=== PATIENT | male | born 1940 | race Caucasian/White ===

== ENCOUNTER → 2016-09-06 | Outpatient (CLI) | payer OTHER ==
[~2016-09-06] MED LIST: REGADENOSON 0.4 MG/5 ML DISP.SYRIN. IV ONE
== END | disposition home or self-care (01) ==
LOC: PCVCIMAG 08:15
PROVIDERS: ATTEND Internal Medicine Cardiovascular Disease
DX: E78.00 Pure hypercholesterolemia, unspecified (principal); I10 Essential (primary) hypertension; E11.9 Type 2 diabetes mellitus without complications; J44.9 Chronic obstructive pulmonary disease, unspecified; Z72.0 Tobacco use
CPT/HCPCS: 78452; 93017; A9500; J2785

== ENCOUNTER → 2017-04-10 | Outpatient (CLI) | payer OTHER | END | disposition home or self-care (01) | LOC: PCVCCLINIC 15:01 | PROVIDERS: ATTEND Internal Medicine Cardiovascular Disease | DX: I10 Essential (primary) hypertension (principal); I27.2 Other secondary pulmonary hypertension; G47.33 Obstructive sleep apnea (adult) (pediatric); J43.9 Emphysema, unspecified; E11.9 Type 2 diabetes mellitus without complications; I49.1 Atrial premature depolarization; J30.9 Allergic rhinitis, unspecified; Z87.891 Personal history of nicotine dependence; Z79.84 Long term (current) use of oral hypoglycemic drugs; Z88.2 Allergy status to sulfonamides; Z88.6 Allergy status to analgesic agent | CPT/HCPCS: 80061; 93005; G0463 ==

== ENCOUNTER → 2017-10-18 | Outpatient (CLI) | payer OTHER | END | disposition home or self-care (01) | LOC: PCVCIMAG 16:19 | DX: I10 Essential (primary) hypertension (principal); J43.9 Emphysema, unspecified; E78.00 Pure hypercholesterolemia, unspecified; E11.9 Type 2 diabetes mellitus without complications; I48.91 Unspecified atrial fibrillation; Z86.79 Personal history of other diseases of the circulatory system; Z87.891 Personal history of nicotine dependence; Z79.899 Other long term (current) drug therapy; Z79.84 Long term (current) use of oral hypoglycemic drugs | CPT/HCPCS: 80061; 93005; 93306; G0463 ==

== ENCOUNTER → 2018-06-21 | Outpatient (CLI) | payer OTHER | END | disposition home or self-care (01) | LOC: PCVCCLINIC 14:30 | PROVIDERS: ATTEND Internal Medicine Cardiovascular Disease | DX: I10 Essential (primary) hypertension (principal); J43.9 Emphysema, unspecified; E11.9 Type 2 diabetes mellitus without complications; E78.00 Pure hypercholesterolemia, unspecified; F17.200 Nicotine dependence, unspecified, uncomplicated; Z79.84 Long term (current) use of oral hypoglycemic drugs | CPT/HCPCS: 80061; 93005; G0463 ==

== ENCOUNTER → 2018-10-08 | Outpatient (CLI) | payer OTHER ==
--- NOTE | 2018-10-08 12:25 | PCVCIMAG ---
APPROVED REPORT Imaging Protocol: Rest Tc-99m/Stress Tc-99m 1 day Study performed: 10/08/2018 09:06:52 Indication: CAD, Pre Op, Bradycardia Patient Location: Out-Patient Stress Nurse: Riana Yuan RN, YANELIS Mccarthy Tech:Luis Alfredo Gutierrez NMTCB Ht: 5 ft 9 in Wt: 225 lbs BSA: 2.17 m2 HR: 64 bpm BP: 137/63 mmHg BMI: 33.22 Rhythm: Sinus Rhythm, [place], PAC's Medical History Medical History: Age, Hyperlipidemia, HTN, COPD, DM Non Insulin, Smoker Medications: Cardura, HCTZ, Lisinopril Allergies: Sulfa, ASA, Welbutrin Pretest Chest Pain Characteristics: No chest pain Exercise History: Sedentary Resting Data Rest SPECT myocardial perfusion imaging was performed in supine position 45 minutes following the intravenous injection of 11.4 mCi of Tc-99m Sestamibi. Time of rest injection: 0900 Date: 10/08/2018 Administration Route: IV Administration Site: Right AC Pharmacologic Stress Pharmacologic stress test was performed by injecting Regadenoson 0.4 mg IV push over 10-15 seconds immediately followed by the intravenous injection of 32.8 mCi of Tc-99m Sestamibi. Time of stress injection: 1015 Date: 10/08/2018 Administration Route: IV Administration Site: Right AC Gated Stress SPECT was performed 45 minutes after stress injection. The images were gated to evaluate regional wall motion and calculate left ventricular ejection fraction. Stress Test Details Stress Test: Pharmacologic stress testing performed using 0.4 mg of regadenoson per 5 mL given IV over 10 seconds. Reason for pharmacologic stress test: O2 dependent, Spinal Stenosis. HRMax Heart Rate (APMHR): 142 bpm Resting HR: 64 bpmTarget HR (85% APMHR): 120 bpm Max HR Achieved: 100 bpm % of APMHR: 70 Recovery HR: 74 bpm BP Resting BP: 137/63 mmHg Max BP: 151/67 mmHg Recovery BP: 146/63 mmHg ECG Resting ECG: Sinus Rhythm, PACs Stress ECG: Sinus Tachycardia ST Change: Non-ischemic Arrhythmia: PAC's, PVC's Recovery ECG: Sinus Rhythm Clinical Reason for Termination: Completed protocol Stress Symptoms: Dyspnea Exercise duration: min 55 sec Symptoms resolved with caffeine. Study Quality Study: Good Artifact: Mild Diaphragmatic artifact Study Data Post stress, the left ventricular ejection was 70%.. SSS: 2 SRS: 9 SDS: 1 TID = 0.98. Perfusion There is a small area of mildly reduced uptake in the basal and apical segments of the inferior wall which is seen on the stress images as well as the resting images. This area thickens and moves normally and is most consistent with attenuation artifact. Wall Motion Normal left ventricular wall motion. Nuclear Conclusion ECG Findings: negative for ischemia Clinical Findings: non-diagnostic Nuclear Findings: negative for ischemia Exercise Capacity: not assessed Left Ventricular Function: normal Risk Study: low This study is of low probability for inducible ischemia or prior infarct. Normal global and segmental LV systolic function. Artifact: Mild Diaphragmatic artifact
== END | disposition home or self-care (01) ==
LOC: PCVCIMAG 12:15
PROVIDERS: ATTEND Internal Medicine Cardiovascular Disease
DX: Z01.810 Encounter for preprocedural cardiovascular examination (principal); I25.10 Atherosclerotic heart disease of native coronary artery without angina pectoris; R00.1 Bradycardia, unspecified
CPT/HCPCS: 78452; 93017; A9500; J2785

== ENCOUNTER → 2019-04-11 | Outpatient (CLI) | payer OTHER | END | disposition home or self-care (01) | LOC: PCVCCLINIC 15:40 | PROVIDERS: ATTEND Internal Medicine Cardiovascular Disease | DX: I10 Essential (primary) hypertension (principal); E78.00 Pure hypercholesterolemia, unspecified; J44.9 Chronic obstructive pulmonary disease, unspecified; E11.9 Type 2 diabetes mellitus without complications; R00.1 Bradycardia, unspecified; Z99.81 Dependence on supplemental oxygen; Z72.0 Tobacco use; Z88.2 Allergy status to sulfonamides; Z88.6 Allergy status to analgesic agent | CPT/HCPCS: 36415; 80061; 93005; G0463 ==